=== PATIENT | male | born 1990 ===

== ENCOUNTER 2020-10-03 05:35 | Inpatient (IN) | payer OTHER ==
[2020-10-03] MEDS ORDERED: SODIUM CHLORIDE 0.9% 1000 ML 2,000 ML ONE (05:42)
[2020-10-03] MEDS ORDERED: SODIUM CHLORIDE 0.9% 1000 ML 1,000 ML IV ONE ×4 (05:44→07:16)
[2020-10-03] MEDS ORDERED: fentaNYL 100 MCG/2 ML INJ IV ONE ×2 (05:44→11:11)
[2020-10-03] MEDS ORDERED: TETANUS,DIPHTHERIA TOXOID ADULT 0.5 ML INJ IM ONE (05:53)
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
[2020-10-03 06:20] LABS: Hematocrit 46.1 % (35.5-45.6); Hemoglobin 15.2 gm/dl (11.8-15.2); Mean Corpuscular HGB Conc 33 % (32-34); Mean Corpuscular Volume 100 fl (84-94); Platelet Count 313 K/mm3 (140-440); Red Cell Distribution Width 14.2 % (13.2-15.2)
[2020-10-03 06:31] LABS: INR 1.25 (0.87-1.13)
[2020-10-03 06:38] LABS: Albumin 5.1 g/dL (3.9-5); Calcium 10.2 mg/dL (8.4-10.2)
[2020-10-03 08:03] LABS: Benzodiazepines Screen,Urine Negative; Cocaine Screen,Urine Negative; Methadone Screen,Urine Negative; Opiate Screen,Urine Negative
[2020-10-03 08:56] LABS: Amphetamine Screen,Urine PRESUMPTIVE POSITIVE; Cannabinoid Screen,Urine PRESUMPTIVE POSITIVE
[2020-10-03 10:54] LABS: Total Cells Counted 100
[2020-10-03 10:55] LABS: Platelet Estimate Consistent w Auto; RBC Morphology Normal
[2020-10-03] MEDS ORDERED: fentaNYL 100 MCG/2 ML INJ ONE (11:00)
[2020-10-03] MEDS ORDERED: oxyCODONE /ACETAMINOPHEN 5-325MG TAB PO PRN (11:25)
[2020-10-03] MEDS ORDERED: ACETAMINOPHEN 325 MG TAB PO PRN (11:25)
[2020-10-03] MEDS ORDERED: ONDANSETRON 4 MG/2 ML INJ IV PRN (11:25)
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
[2020-10-03] MEDS: SODIUM CHLORIDE 0.9% 1000 ML 1,000 ML IV SCH (15:23)
[2020-10-03] MEDS: MORPHINE 2 MG/1 ML INJ IV PRN (15:23)
[2020-10-03 16:09] LABS: BUN/Creatinine Ratio 14; Blood Urea Nitrogen 13 mg/dL (9-20); Calcium 8.2 mg/dL (8.4-10.2); Hemolysis Index 19
[2020-10-03 22:46] VITALS: BP 115/57
[2020-10-04] MEDS: SODIUM CHLORIDE 0.9% 1000 ML 1,000 ML IV SCH (00:19)
[2020-10-04 07:56] LABS: Basophils % (Auto) 0.3 % (0.0-1.8); Eosinophils # (Auto) 0.1 K/mm3 (0.0-0.4); Eosinophils % (Auto) 1.8 % (0.0-4.3); Hemoglobin 13.7 gm/dl (11.8-15.2); Lymphocytes # (Auto) 1.7 K/mm3 (1.2-5.4); Lymphocytes % (Auto) 22.3 % (13.4-35.0); Mean Corpuscular HGB Conc 35 % (32-34); Mean Corpuscular Volume 95 fl (84-94); Monocytes # (Auto) 0.5 K/mm3 (0.0-0.8); Monocytes % (Auto) 7.3 % (0.0-7.3); Platelet Count 213 K/mm3 (140-440); Red Cell Distribution Width 13.7 % (13.2-15.2)
[2020-10-04 08:26] LABS: Alanine Aminotransferase 56 units/L (7-56); Albumin 4.1 g/dL (3.9-5); Blood Urea Nitrogen 7 mg/dL (9-20); Calcium 8.6 mg/dL (8.4-10.2); Hemolysis Index 5
[2020-10-04 08:28] LABS: BUN/Creatinine Ratio 12
[2020-10-04 08:32] LABS: Hematocrit 39.8 % (35.5-45.6)
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
[2020-10-04] MEDS: MORPHINE 2 MG/1 ML INJ IV PRN (16:41)
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
== END 2020-10-04 17:10 | disposition left against medical advice (07) | DRG 564 ==
LOC: ED 05:35 → 3A 09:04 → OBSVTOIN 10-04 10:00
PROVIDERS: ADMIT Internal Medicine; ATTEND Internal Medicine
DX: T79.6XXA Traumatic ischemia of muscle, initial encounter (principal); N17.0 Acute kidney failure with tubular necrosis; F19.10 Other psychoactive substance abuse, uncomplicated; S81.832A Puncture wound without foreign body, left lower leg, initial encounter; R73.9 Hyperglycemia, unspecified; Y92.89 Other specified places as the place of occurrence of the external cause; Z83.3 Family history of diabetes mellitus; W34.00XA Accidental discharge from unspecified firearms or gun, initial encounter; Z53.29 Procedure and treatment not carried out because of patient's decision for other reasons
CPT/HCPCS: 36415; 70450; 71045; 71260; 72125; 72170; 75635; 80048; 80053; 80307; 80320; 82550; 85007; 85025; 85610; 86850; 86900; 86901; 90714; 96361; 96374; G0378; G0480; J0690; J2270; J3010; J7030; Q9967